=== PATIENT | male | born 1975 | race Caucasian/White ===

== ENCOUNTER 2019-12-21 21:59 | Emergency (ER) | payer OTHER ==
[~2019-12-21] VITALS: Ht 157.5 cm; Wt 49.9 kg
[2019-12-21] MEDS ORDERED: ZOFRAN 4 MG ORAL4 MG PO (22:13)
[2019-12-21] MEDS ORDERED: LIPITOR10 MG PO (22:14)
[2019-12-21] MEDS ORDERED: METFORMIN HCL500 M3 PO (22:14)
[2019-12-21] MEDS ORDERED: OMEPRAZOLE 20 M20 M1 PO (22:15)
[2019-12-21 22:46] LABS: ABSOLUTE NEUTROPHILS 4.4 thou/uL (1.4-8.2); BASOPHILS 0.4 % (0.0-2.0); EOSINOPHILS 0.2 % (0.0-3.0); HEMATOCRIT 47.6 % (42.0-52.0); HEMOGLOBIN 16.6 gm/dL (14.0-18.0); LYMPHOCYTES 26.4 % (24.0-44.0); MCH 31.6 pg (26.0-34.0); MCHC 34.8 g/dL (28.0-37.0); MCV 90.6 fL (80.0-100.0); MONOCYTES 6.3 % (1.0-8.0); PLATELET COUNT 287 thou/uL (150-400); POLYS 66.7 % (36.0-66.0); RBC 5.26 mil/uL (4.50-6.00); RDW 12.1 % (10.5-14.5); WBC 6.7 thou/uL (4.0-11.0)
[2019-12-21 22:47] LABS: ANION GAP 13 mmol/L (7-16); BUN 10 mg/dL (7-18); CALCIUM 8.6 mg/dL (8.5-10.1); CHLORIDE 95 mmol/L (98-107); CO2 29 mmol/L (21-32); CREATININE 0.9 mg/dL (0.7-1.3); GLUCOSE 282 mg/dL (74-106); POTASSIUM 3.3 mmol/L (3.5-5.1); SODIUM 137 mmol/L (136-145)
[2019-12-21 22:56] LABS: ALBUMIN 4.2 g/dL (3.4-5.0); LIPASE 392 U/L (73-393); SGOT 24 U/L (15-37); SGPT 43 U/L (30-65); TOTAL BILIRUBIN 0.9 mg/dL (0.2-1.0); TOTAL PROTEIN 7.5 g/dL (6.4-8.2); TROPONIN-I <0.06 ng/mL (<0.06)
[2019-12-21 23:28] LABS: URINE BILIRUBIN NEGATIVE (Negative); URINE BLOOD NEGATIVE (Negative); URINE CLARITY CLEAR; URINE COLOR YELLOW; URINE GLUCOSE-RANDOM* 3+ (Negative); URINE KETONES 1+ (Negative); URINE LEUKOCYTES-REFLEX NEGATIVE (Negative); URINE NITRITE-REFLEX NEGATIVE (Negative); URINE PROTEIN (DIPSTICK) NEGATIVE (Negative); URINE UROBILINOGEN 0.2 E.U./dl (0.2-1.0)
[2019-12-21 23:31] VITALS: BP 141/77
--- NOTE | 2019-12-22 10:19 | EKG ---
[facility] [place] [address] ELECTROCARDIOGRAM REPORT Name: KRISTEN BASSETT Room #: [facility]#: [id number] Admission: 12/21/19 Attend Phys: Discharge: 12/21/19 Date of : 77 Report #: [id number] THIS REPORT FOR: cc: CHANDAN - Tita family physician/PCP CHANDAN - Tita family physician/PCP Marin Christie MD [facility] THIS REPORT FOR: //name// [facility] ED Test Date: 2019-12-21 Test Time: 22:40:31 Pat Name: KRISTEN BASSETT Department: Room: Gender: [employer]: [place] [id number] : 1975 Requested By: Yovany Culp Order Number: [id number] MD: Marin Christie Measurements Intervals [place] Rate: 80 P: 43 MI: 129 QRS: 43 QRSD: 74 T: 29 QT: 357 QTc: 412 Interpretive Statements Sinus rhythm Ventricular premature complex No previous ECG available for comparison Electronically Signed On 12-22-2019 10:18:59 CDT by Marin Christie [email or web address] <ELECTRONICALLY SIGNED> By: Marin Christie MD, [facility] 12/22/19 [id number] Marin Christie MD, [facility] /EPI
== END 2019-12-21 23:32 | disposition home or self-care (01) ==
LOC: ER 21:59
PROVIDERS: Emergency Medicine
DX: R10.13 Epigastric pain (principal); R11.2 Nausea with vomiting, unspecified; Z79.899 Other long term (current) drug therapy